=== PATIENT | female | born 1995 | race Caucasian/White ===

== ENCOUNTER 2021-07-17 19:04 | Emergency (ER) | payer BC, SELFPAY ==
--- OUTSIDE RECORDS SUMMARY | 2021-07-17 19:07 | XMS REPORT | Continuity of Care Document ---
:1995 Author Organization [facility] t Address [address] [place] [address] Care Team Providers Name Role Phone PCP, DOES NOT HAVE A Primary Care Physician Unavailable Jelly Attending Clinician Unavailable Chapin WALKER Attending Clinician Unavailable Americo JONES S Attending Clinician KARLI Attending Clinician Unavailable Urbano BENTON Attending Clinician Unavailable ALICJA Attending Clinician Unavailable UNKNOWN Attending Clinician Unavailable Chapin WALKER Admitting Clinician Unavailable Problems Condition Condition Condition Status Onset Resolution Last Treating Co mments Source Name Details Category Date Date Treatment Clinician Date Mild Mild Disease Active Univers intermitte intermitte 07-24 it y of nt asthma [place] acute with acute 00 Me dical exacerbati exacerbati Br anch on on Allergies, Adverse Reactions, Alerts Allergy Allergy Status Severity Reaction(s) Onset Inactive Treating Comm ents Source Name Type Date Date Clinician NO KNOWN Drug Active Univers ALLERGIE Class it of [facility] Social History Social Habit Start Date Stop Date Quantity Comments Source Exposure to Not sure [facility] SARS-CoV-2 (event) Medica l Branch Tobacco use and 2019-07-25 2019-07-25 Never used [facility] exposure 00:00:00 00:00:00 Medical Branch Sex Assigned At [birth year] [facility] 00:00:00 00:00:00 Medical Branch Smoking Status Start Date Stop Date Source Never smoker [facility] Medications Ordered Filled Start Stop Current Ordering Indication Dosage Frequency Signature Comments Components Source Medication Medication Date Date Medication? Clinician (SIG) Name Name iopamidol 2021- No [id number] 100mL 100 mL, Univers (ISOVUE 05-19 Intravenou ity o f 370-500 mL) 19:15: 18:07 s, ONCE, 1 [place] injection 00 :00 dose, On Medica l 100 mL 05/19/21 Branch at 1315, Routine albuterol Yes [id number] 2{puff} Inhale 2 Univers (PROAIR 5-09 Puffs ity of HFA) 90 00:00: every 4 [place] mcg/actuati 00 (four) Medica l on inhaler hours as Branc h needed for Wheezing or Shortness of Breath. Albuterol Albuterol Yes Barb [address] [facility] Sulfate Sulfate 4-20 [place] [facility] Omeprazole Omeprazole Yes Barb TAKE ONE [facility] [place] (1) [facility] - CAPSULE(S) [facility] BY MOUTH l ONCE A Outpati DAY. ent Clinics Blisovi FE Blisovi FE Yes Barb TAKE ONE [facility] 04/0620 [place] (1[facility] - TABLET(S) [facility] BY MOUTH l ONCE A Outpati DAY. ent Clinics ProAir HFA ProAir HFA Yes Barb [address] [facility] [place] [facility] Immunizations Ordered Filled Immunization Date Status Comments Sour e Immunization Name Name SARS-COV-2 COVID-19 2020-07-25 Completed Unive rsity of PFIZER VACCINE 00:00:00 [facility] SARS-COV-2 COVID-19 2020-07-02 Completed Unive rsity of PFIZER VACCINE 00:00:00 [facility] Vital Signs Vital Name Observation Time Observation Value Comments Source Heart rate 2021-05-19 19:45:00 94 /min Universi ty [facility] Systolic blood 2021-05-19 17:00:00 152 mm[Hg] Univer sity of pressure [facility] Diastolic blood 2021-05-19 17:00:00 83 mm[Hg] Unive rsity of pressure [facility] Body temperature 2021-05-19 17:00:00 37.28 [facility] Respiratory rate 2021-05-19 17:00:00 18 [facility] Body weight 2021-05-19 17:00:00 108.863 kg [facility] BMI 2021-05-19 17:00:00 38.74 kg/m2 [facility] Oxygen saturation in 2021-05-19 17:00:00 99 /min [facility] Arterial blood by [facility] Pulse oximetry Branch Procedures Procedure Date / Time Performed Performing Clinician Manda e CT CHEST PULMONARY 2021-05-19 18:14:44 Barbie Walker [facility] ANGIOGRAM [facility] XR CHEST 1 VW 2021-05-19 17:41:22 Barbie Walker [facility] TROPONIN I 2021-05-19 17:34:00 Barbie Walker [facility] COMP. METABOLIC PANEL 2021-05-19 17:34:00 Barbie Walker [facility] ([id number]) [facility] CBC WITH DIFF 2021-05-19 17:34:00 Barbie Walker [facility] POCT TEST 2021-05-19 17:10:00 Karan Caceres [facility] URINALYSIS 2021-05-19 17:08:00 Caceres Karan [facility] NOTICE OF PRIVACY 2021-05-19 16:58:03 Doctor Unassigned, No [facility] PRACTICES Name [facility] CONSENT/REFUSAL FOR 2021-05-19 16:57:39 Doctor Unassigned, No [facility] DIAGNOSIS AND [facility] TREATMENT Encounters Start End Encounter Admission Attending Care Care Encounter Source Date/Time Date/Time Type Type Clinicians Facility Department ID 2021-04-12 Outpatient Jelly, [facility] [id number] [facility] [address] 11:04:17 Barb [id number] [facility] 2021-05-19 2021-05-19 Emergency X GERARD WALKER ERT [id number] Univers 11:07:00 15:02:00 BARBIE cordova [facility] 2021-05-19 2021-05-19 Emergency GERARD Walker [id number] Univers 11:07:00 15:02:00 Barbie NEAL [id number] i niraj HEIN [id number] Jevon [facility] [id number] [facility] 084 Branch 2021-01-07 2021-01-07 Outpatient [facility] [id number] Univers 16:20:00 16:20:00 [id number] [facility] 2021-01-07 2021-01-07 [facility] [id number] Univers 16:20:00 16:20:00 APRIL [facility] 2020-07-25 2020-07-25 [facility] [id number] Univers 13:20:00 13:14:09 ERIK [facility] 2020-07-23 2020-07-23 Outpatient [facility] [id number] Univers 13:20:00 13:20:00 [facility] 2020-07-02 2020-07-02 [facility] [id number] Univers 13:45:00 13:19:56 ERIK [facility] 2020-05-16 2020-05-16 Outpatient [facility]MLC [facility] [id number] [facility]00 [facility] Outpati ent Clinics 2019-09-17 2019-09-17 Outpatient R [facility] [id number] Univers 17:20:00 17:20:00 [id number] [facility] 2019-09-17 2019-09-17 Outpatient R ALICJA, [facility] [id number] Univers 17:20:00 17:20:00 JOHNATHON [facility] 2019-07-25 2019-07-25 Outpatient R UNKNOWN, [facility] [id number] Univers 12:40:00 12:40:00 ATTENDING [facility] 2019-04-16 2019-04-16 [facility] [id number] 09:00:00 09:00:00 [facility] Medicine Outpati ent Clinics Results Test Description Test Time Test Comments Results Result Comments Source TROPONIN I 2021-05-19 18:06:41 Test Item Value Reference Range Interpretation Comme nts TROPONIN I (test code = 0.002 ng/mL See_Comment [Au tomated message] The [id number]) system which ge nerated this result tra nsmitted reference range : <=0.034. The reference r elyes was not used to int erpret this result as normal/abnormal . DARYA (test code = DARYA) Reference (Normal) Range (defined by the 99th percentile reference limit): <= 0.034 ng/mL Note: Cardiac troponin begins to rise 3-4 hours after the onset of ischemia. Repeat in 4-6 hours if the sample was drawn within 3-4 hours of the onset of the symptom and found normal. Diagnosis of myocardial injury is made with acute changes in cTn concentrations with at least one serial sample above the 99th percentile upper reference limit (URL), taken together with the patient's clinical presentation. Biotin has been reported to cause a negative bias, interpret results relative to patient's use of biotin. Lab Interpretation Normal (test code = 20221-7) [facility]. METABOLIC PANEL (56900)2021-05-19 17:54:50 Test Item Value Reference Range Interpretation Comments NA (test code = 140 mmol/L 135-145 3129834875) K (test code = 4.1 mmol/L 3.5-5.0 0548118160) CL (test code = 103 mmol/L 98-108 3027847506) CO2 TOTAL (test code = 26 mmol/L 23-31 5775738442) AGAP (test code = 2-16 9031721303) BUN (test code = 14 mg/dL 7-23 5577139433) GLUCOSE (test code = 107 mg/dL 70-110 8769232231) CREATININE (test code = 0.57 mg/dL 0.50-1.04 2650467051) TOTAL BILI (test code = 0.5 mg/dL 0.1-1.5 8059435333) CALCIUM (test code = 9.9 mg/dL 8.6-10.6 0134356133) T PROTEIN (test code = 8.1 g/dL 6.3-8.2 8062764586) ALBUMIN (test code = 5.1 g/dL 3.5-5.0 H 1444725549) ALK PHOS (test code = 71 U/L 34-122 1180731884) ALTv (test code = 25 U/L 5-35 2-6) AST(SGOT) (test code = 27 U/L 13-40 8686337249) eGFR (test code = mL/min/1.73m2 0978283603) DARYA (test code = DARYA) Association of Glomerular Filtration Rate (GFR) and Staging of Kidney Disease* + --+ --+ ------+| GFR (mL/min/1.73 m2) ?| With Kidney Damage ?| ?Without Kidney Damage+ --------+ --------+ +| ?>90 ?| ?Stage one ?| ? Normal ?+ ---+ ---+ -------+| ?60-89 ?| ?Stage two ?| ? Decreased GFR ? + --+ --+ ------+| ?30-59 ?| ?Stage three ?| ? Stage three ? + --+ --+ ------+| ?15-29 ?| ?Stage four ? | ? Stage four ?+ ---+ ---+ -------+| ?<15 (or dialysis) ? ?| ?Stage five ? | ? Stage five ?+ ---+ ---+ -------+ *Each stage assumes the associated GFR level has been in effect for at least three months. ?Stages 1 to 5, with or without kidney disease, indicate chronic kidney disease. Notes: Determination of stages one and two (with eGFR >59mL/min/1.73 m2) requires estimation of kidney damage for at least three months as defined by structural or functional abnormalities of the kidney, manifested by either:Pathological abnormalities or Markers of kidney damage (including abnormalities in the composition of the blood or urine or abnormalities in imaging tests). Lab Interpretation Abnormal (test code = 58195-4) [facility] WITH [id number] 17:44:47 Test Item Value Reference Range Interpretation Comments WBC (test code = See_Comment [Automated message] 6690-2) The system [employer] generated this result transmitted ref erence range: 4.30 - 1 1.10 10*3/?L. The re ference range was not u sed to interpret this result as normal/abnor mal. RBC (test code = See_Comment [Automated message] 789-8) The system [employer] generated this result transmitted ref erence range: 3.93 - 5 .25 10*6/?L. The re ference range was not u sed to interpret this result as normal/abnor mal. HGB (test code = 13.6 g/dL 11.6-15.0 718-7) HCT (test code = 41.9 % 35.7-45.2 4544-3) MCV (test code = 91.7 fL 80.6-95.5 787-2) MCH (test code = 29.8 pg 25.9-32.8 785-6) MCHC (test code = 32.5 g/dL 31.6-35.1 786-4) RDW-SD (test code 41.3 fL 39.0-49.9 = 88301-3) RDW-CV (test code 12.3 % 12.0-15.5 = 788-0) PLT (test code = See_Comment [Automated message] 777-3) The system [employer] generated this result transmitted ref erence range: 166 - 35 8 10*3/?L. The re ference range was not u sed to interpret this result as normal/abnor mal. MPV (test code = 10.2 fL 9.5-12.9 49918-1) NRBC/100 WBC (test See_Comment [Automat ed message] code = 2260304085) The [employer] which generated this result transmitted ref erence range: 0.0 - 10 .0 /100 WBCs. The refer ence range was not u sed to interpret this result as normal/abnor mal. NRBC x10^3 (test <0.01 See_Comment [Automated message] code = 5561684806) The syste m which generated this result transmitted ref erence range: 10*3/?L. The reference range was not used to interpr et this result as normal/abnormal . GRAN MAT (NEUT) % 63.6 % (test code = 770-8) IMM GRAN % (test 0.20 % code = 5827501798) LYMPH % (test code 28.3 % = 736-9) MONO % (test code 7.1 % = 5905-5) EOS % (test code = 0.6 % 713-8) BASO % (test code 0.2 % = 706-2) GRAN MAT 5.15 10*3/uL 1.88-7.09 x10^3(ANC) (test code = 3577214077) IMM GRAN x10^3 <0.03 0.00-0.06 (test code = 1649931636) LYMPH x10^3 (test 2.30 10*3/uL 1.32-3.29 code = 731-0) MONO x10^3 (test 0.58 10*3/uL 0.33-0.92 code = 742-7) EOS x10^3 (test 0.05 10*3/uL 0.03-0.39 code = 711-2) BASO x10^3 (test <0.03 0.01-0.07 code = 704-7) [id number] Test Item Value Reference Range Interpretation Comments POCT PREG (test code = 1605) negative On board controls acceptable with present C Line (test code = 3574) POCT PREG LOT # (test code = 3575) [id number] POCT PREG TEST DATE (test code = 3576) Lab Interpretation (test code = Normal 73724-5) [facility]"
[2021-07-17 19:45] LABS: Urine Blood 3+ (Negative); Urine Glucose Negative (Negative); Urine Protein Trace (Negative); Urine Specific Gravity >=1.030 (1.005-1.030); Urine pH 5.5 (5.0-7.0)
[2021-07-17 20:23] LABS: Absolute Lymphocytes (CBC) 1.8 K/uL (0.7-4.9); Hematocrit 39.4 % (36.0-45.0); Lymphocytes % 17.9 % (15.3-44.8); MPV 8.8 fL (7.6-11.3); RBC Red Blood Cell Count 4.38 M/uL (3.86-4.86)
[2021-07-17 20:39] LABS: ALT/SGPT 28 U/L (12-78); AST/SGOT 12 U/L (15-37); Albumin 3.8 g/dL (3.4-5.0); Alkaline Phosphatase 53 U/L (45-117); BUN Blood Urea Nitrogen 13 mg/dL (7-18); Bicarbonate 28 mmol/L (21-32); Bilirubin Total 0.4 mg/dL (0.2-1.0); Glucose Level 103 mg/dL (74-106); Lipase 74 U/L (73-393); Potassium 3.8 mmol/L (3.5-5.1); Protein, Total 7.5 g/dL (6.4-8.2); Sodium Level 138 mmol/L (136-145)
--- NOTE | 2021-07-17 20:47 | RAD REPORT ---
EXAM DESCRIPTION: US - Abdomen Exam Limited - 07/17/2021 8:26 pm CLINICAL HISTORY: ABD PAIN COMPARISON: No comparisons FINDINGS: No gallstones, sludge or other abnormalities within the gallbladder lumen. There is no wal l thickening or pericholecystic fluid. No common duct stone or biliary tree dilatation identified. IMPRESSION: Normal gallbladder and biliary tree ultrasound.
--- NOTE | 2021-07-17 21:34 | RAD REPORT ---
EXAM DESCRIPTION: CT - Abdomen Pelvis W Contrast - 07/17/2021 8:59 pm CLINICAL HISTORY: RLQ abdominal pain COMPARISON: Abdomen Exam Limited dated 07/17/2021 TECHNIQUE: Biphasic, helical CT imaging of the abdomen and pelvis was performed following 100 ml non -ionic IV contrast. No oral contrast. All CT scans are performed using dose optimization technique as appropriate and may include automated exposure control or mA/KV adjustment according to patient size. FINDINGS: No suspicious findings in the lung bases. The liver, spleen, and pancreas show no suspicious findings. Liver attenuation is borderline fatty in filtrated. Gallbladder and biliary tree are also without suspicious finding. Symmetric renal function is seen with no hydronephrosis or suspicious renal mass. No pyelonephritis o r acute parenchymal process. No bladder abnormalities. No adrenal abnormalities. Uterus and ovaries s how no suspicious findings. No gastric dilatation or gastric wall thickening. Johnson of the antrum are prominent. This could be a peristalsis artifact. Antritis cannot be excluded. No small bowel dilatation. No acute colon finding. Appendix is normal. No acute GI finding. No free air, free fluid or inflammatory stranding. No hussain ia, mass or bulky lymphadenopathy. No suspicious bony findings. IMPRESSION: Johnson of the gastric antrum are prominent. This can be a peristalsis artifact. Wall checo a from antritis would be a consideration and needs correlation with clinical presentation. Remainder of the study is without acute or significant finding.
--- NOTE | 2021-07-17 21:41 | ER ---
Nurse's Notes [facility] Name: Emma Mulligan Age: 26 yrs Sex: Female : 1995 Arrival Date: 07/17/2021 Time: 19:08 Bed 13 Private MD: Diagnosis: Abdominal pain, Generalized;Vomiting Presentation: 07/17 19:23 Chief complaint: Patient states: intermittent stomach pain since waking this morning. al4 pain described as sharp. vomit x 1 and pain got worse afterwards. constipation since yesterday. Coronavirus screen: Vaccine status: Patient reports receiving the 2nd dose of the covid vaccine. pfizer. Ebola Screen: No symptoms or risks identified at this time. Initial Sepsis Screen: Does the patient meet any 2 criteria? No. Patient's initial sepsis screen is negative. Does the patient have a suspected source of infection? No. Patient's initial sepsis screen is negative. Risk Assessment: Do you want to hurt yourself or someone else? Patient reports no desire to harm self or others. Onset of symptoms was July 17, 2021. 19:23 Method Of Arrival: Ambulatory al4 19:23 Acuity: RUDY 3 al4 Triage Assessment: 19:25 General: Appears in no apparent distress. uncomfortable, Behavior is calm, cooperative. al4 Pain: Complains of pain in right upper quadrant, left upper quadrant, right lower quadrant and left lower quadrant Pain currently is 0 out of 10 on a pain scale. at worst was 7 out of 10 on a pain scale. Neuro: Level of Consciousness is awake, alert, obeys commands, Oriented to person, place, time, situation. Cardiovascular: Patient's skin is warm and dry. Respiratory: Airway is patent Respiratory effort is unlabored, Respiratory pattern is regular. GI: Patient currently denies diarrhea, nausea. 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 - Social history:: Smoking status: Patient denies any tobacco usage or history of. Screenin:16 Abuse screen: Denies threats or abuse. Denies injuries from another. Nutritional ld1 screening: No deficits noted. Tuberculosis screening: No symptoms or risk factors identified. Fall Risk None identified. Assessment: 20:16 General: Appears in no apparent distress. comfortable, Behavior is calm, cooperative, ld1 appropriate for age. Pain: Complains of pain in abdomen Pain does not radiate. Pain currently is 9 out of 10 on a pain scale. Quality of pain is described as throbbing. Neuro: Level of Consciousness is awake, alert, obeys commands, Oriented to person, place, time, situation. Cardiovascular: Capillary refill < 3 seconds Patient's skin is warm and dry. Respiratory: Airway is patent Respiratory effort is even, unlabored. GI: Abdomen is flat, non-distended, Bowel sounds present X 4 quads. Abd is soft Abdomen is tender to palpation. : No signs and/or symptoms were reported regarding the genitourinary system. EENT: No signs and/or symptoms were reported regarding the EENT system. Derm: No signs and/or symptoms reported regarding the dermatologic system. Musculoskeletal: No signs and/or symptoms reported regarding the musculoskeletal system. 21:31 Reassessment: Patient appears in no apparent distress at this time. Patient and/or ld1 family updated on plan of care and expected duration. Pain level reassessed. Vital Signs: 19:23 BP 135 / 83; Pulse 103; Resp 14; Temp 98.3; Pulse Ox 98% ; Weight 113.4 kg; Height 5 al4 ft. 6 in. (167.64 cm); Pain 7/10; 21:31 BP 129 / 82; Pulse 100; Resp 18; Pulse Ox 100% on R/A; ld1 19:23 Body Mass Index 40.35 (113.40 kg, 167.64 cm) al4 ED Course: 19:08 Patient arrived in ED. kz 19:25 Triage completed. al4 19:25 Arm band placed on right wrist. al4 19:30 Gaston Rebollar PA is PHCP. jm 19:30 Dany Curiel MD is Attending Physician. [facility] 19:30 Destiny Bean, SAIRA is Primary Nurse. ld1 19:30 Attending Physician role handed off by Dany Curiel MD [facility] 19:30 Randall Douglas MD is Attending Physician. [facility] 19:50 Inserted saline lock: 22 gauge in right antecubital area, using aseptic technique. vc1 Blood collected. 20:14 CBC with Diff Sent. ld1 20:14 CMP Sent. ld1 20:14 Lipase Sent. ld1 20:16 Patient has correct armband on for positive identification. Placed in gown. Bed in low ld1 position. Call light in reach. Side rails up X2. engine monitor on. Pulse ox on. Door closed. Noise minimized. Warm blanket given. 20:16 No provider procedures requiring assistance completed. ld1 20:28 US Abdomen Limited In Process Unspecified. EDMS 21:01 CT Abd/Pelvis - IV Contrast Only In Process Unspecified. EDMS 22:05 IV discontinued, intact, bleeding controlled, No redness/swelling at site. ld1 Administered Medications: No medications were administered Outcome: 21:40 Discharge ordered by . shaquille 22:05 Discharged to home ambulatory. ld1 22:05 Condition: stable 22:05 Discharge instructions given to patient, Instructed on discharge instructions, follow up and referral plans. medication usage, Demonstrated understanding of instructions, follow-up care, medications, Prescriptions given X 2. 22:05 Patient left the ED. ld1 Signatures: Dispatcher [employer] EDCT Randall Douglas MD MD cha Mickail, Joel, PA PA Destiny Rizzo, RN RN ld1 Cornelio Davenport Vanessa, RN RN vc1 Melissa Sanchez Corrections: (The following items were deleted from the chart) 19:25 19:25 Allergies: Aspirin; al4 al4
--- NOTE | 2021-07-17 21:41 | EDPHYS ---
Physician Documentation [facility] Name: Emma Mulligan Age: 26 yrs Sex: Female : 1995 Arrival Date: 07/17/2021 Time: 19:08 Bed 13 Private MD: ED Physician Randall Douglas HPI: 07/17 19:31 This 26 yrs old Female presents to ER via Ambulatory with complaints of Abdominal Pain, jmm Vomiting. 19:31 The patient presents with abdominal pain. Onset: The symptoms/episode began/occurred jmm gradually. The symptoms do not radiate. Associated signs and symptoms: Pertinent positives: nausea and vomiting. The symptoms are described as achy. Modifying factors: The symptoms are alleviated by nothing, the symptoms are aggravated by nothing. The patient has not experienced similar symptoms in the past. This is a 26 year old female that presents to the ED with complaints of epigastric pain with vomiting. Denies diarrhea. . 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 - Social history:: Smoking status: Patient denies any tobacco usage or history of. ROS: 19:31 Constitutional: Negative for fever, chills, and weight loss, Cardiovascular: Negative jmm for chest pain, palpitations, and edema, Respiratory: Negative for shortness of breath, cough, wheezing, and pleuritic chest pain. 19:31 Abdomen/GI: Positive for abdominal pain, nausea and vomiting. 19:31 All other systems are negative. Exam: 19:31 Constitutional: This is a well developed, well nourished patient who is awake, alert, jmm and in no acute distress. Head/Face: atraumatic. Eyes: EOMI, no conjunctival erythema appreciated ENT: Moist Mucus Membranes Neck: Trachea midline, Supple Chest/axilla: Normal chest wall appearance and motion. Cardiovascular: Regular rate and rhythm. No edema appreciated Respiratory: Normal respirations, no respiratory distress appreciated 19:31 Back: Normal ROM Skin: General appearance color normal MS/ Extremity: Moves all extremities, no obvious deformities appreciated, no edema noted to the lower extremities Neuro: Awake and alert Psych: Behavior is normal, Mood is normal, Patient is cooperative and pleasant 19:31 Abdomen/GI: Inspection: abdomen appears normal, Bowel sounds: normal, Palpation: soft, mild abdominal tenderness, in the epigastric area, right upper quadrant and right lower quadrant. Vital Signs: 19:23 BP 135 / 83; Pulse 103; Resp 14; Temp 98.3; Pulse Ox 98% ; Weight 113.4 kg; Height 5 al4 ft. 6 in. (167.64 cm); Pain 7/10; 21:31 BP 129 / 82; Pulse 100; Resp 18; Pulse Ox 100% on R/A; ld1 19:23 Body Mass Index 40.35 (113.40 kg, 167.64 cm) al4 MDM: 19:31 Patient medically screened. parker 21:39 Data reviewed: vital signs, nurses notes. Counseling: I had a detailed discussion with shaquille the patient and/or guardian regarding: the historical points, exam findings, and any diagnostic results supporting the discharge/admit diagnosis, lab results, radiology results, the need for outpatient follow up, to return to the emergency department if symptoms worsen or persist or if there are any questions or concerns that arise at home. ED course: Patient is alert and non toxic in appearance in the ED. CT is negative . Advised to follow up with pcp and otherwise given strict return precautions. patient understood and agrees with the plan of care. . 05 19:32 Order name: CBC with Diff; Complete Time: 20:31 [facility] 07/17 19:32 Order name: CMP; Complete Time: 20:42 [facility] 07/17 19:32 Order name: Lipase; Complete Time: 20:42 [facility] 07/17 19:45 Order name: Urine Dipstick-Ancillary; Complete Time: 19:58 [facility] 07/17 19:32 Order name: IV Saline Lock; Complete Time: 20:14 [facility] 07/17 19:32 Order name: Labs collected and sent; Complete Time: 20:14 [facility] 07/17 19:32 Order name: Urine Dipstick-Ancillary (obtain specimen); Complete Time: 19:44 [facility] 07/17 19:32 Order name: Urine Test (obtain specimen); Complete Time: 19:45 [facility] 07/17 19:58 Order name: US Abdomen Limited; Complete Time: 20:51 [facility] 07/17 19:58 Order name: CT Abd/Pelvis - IV Contrast Only; Complete Time: 21:34 [facility] Administered Medications: No medications were administered Disposition Summary: 07/17/21 21:40 Discharge Ordered Location: Home [facility] Condition: Stable [facility] Diagnosis - Abdominal pain, Generalized [facility] - Vomiting [facility] Followup: [facility] - With: Private Physician - When: 2 - 3 days - Reason: Recheck today's complaints, Continuance of care, Re-evaluation by your physician Discharge Instructions: - Discharge Summary Sheet [facility] - Abdominal Pain, Adult [facility] Forms: - Medication Reconciliation Form [facility] - Thank You Letter [facility] - Antibiotic Education [facility] - Prescription Opioid Use [facility] Prescriptions: - ondansetron 4 mg Oral tablet,disintegrating - take 1 tablet by ORAL route every 4-6 hours As needed; 20 tablet; Refills: 0, [facility] Product Selection Permitted - dicyclomine 20 mg Oral Tablet - take 1 tablet by ORAL route 4 times per day; 20 tablet; Refills: 0, Product [facility] Selection Permitted - Pepcid 20 mg Oral Tablet - take 1 tablet by ORAL route every 12 hours for 10 days; 20 tablet; Refills: 0, [facility] Product Selection Permitted Signatures: Dispatcher [employer] EDMS Randall Douglas MD MD cha Mickail, Joel, PA PA [facility] Destiny Bean RN RN ld1 Cornelio Davenport Corrections: (The following items were deleted from the chart) 19:25 19:25 Allergies: Aspirin; al4 al4
[2021-07-17 22:13] VITALS: TEMP 98.3
[2021-07-17 22:14] VITALS: BP 129/82; O2SAT 100
== END 2021-07-17 22:05 | disposition home or self-care (01) ==
LOC: ER 19:04
DX: R10.84 Generalized abdominal pain (principal); R11.10 Vomiting, unspecified
CPT/HCPCS: 85025; 36415; 81003; 83690; 80053; 74177; 76705; Q9967; 99284